=== PATIENT | male | born 1965 | race Caucasian/White ===

== ENCOUNTER 2023-05-24 09:48 | Emergency (ER) | payer OTHER ==
--- NOTE | 2023-05-24 10:52 | XR ---
3 views right shoulder. DATE: 05/24/2023. COMPARISON: None available. HISTORY: Pain in shoulder for lifting. FINDINGS: There is no fracture, subluxation or dislocation. There is mild to moderate osteoarthritis involving the glenohumeral joint space with joint space narr owing and a spur along the inferior medial aspect of the humeral head. Mild irregularity of the great er tuberosity likely relates to rotator cuff tendinopathy. Moderate spurring is seen at the acromial clavicular joint. IMPRESSION: Degenerative changes with no acute osseous abnormalities.
--- NOTE | 2023-05-24 11:38 | ED ---
General Adult HPI - General Chief complaint: Extremity Injury, Upper Stated complaint: Right shoulder pain Source: patient Mode of arrival: ambulatory Limitations: no limitations - History of Present Illness Initial comments: 57-year-old male presenting to the ED with a chief complaint of right shoulder pain. Patient notes he has remote history of right shoulder fracture. Since then, notes intermittent pain of the right shoulder however states over the past few months has been worsening in severity. States over the past few weeks he has noticed some paresthesiasgoing down his right arm. States he told his about this who became concerned and advised him to present to the ED for further evaluation. States that he has follow-up with his orthopedist scheduled on . Denies chest pain or shortness of breath. No recent injury or trauma. No other complaints. - Related Data Previous Rx's Medication Instructions Recorded Ibuprofen [Motrin] 600 mg PO Q8HR PRN #30 tab 05/24/23 methocarbamoL [Robaxin-750] 750 mg PO QID #15 tab 05/24/23 Allergies Allergy/AdvReac Type Severity Reaction Status Date / Time No Known Allergies Allergy Verified 05/24/23 10:01 Review of Systems ROS Statement: Those systems with pertinent positive or pertinent negative responses have been documented in the HPI. ROS Other: All systems not noted in ROS Statement are negative. Past Medical History Past Medical History: No Reported History History of Any Multi-Drug Resistant Organisms: None Reported Past Surgical History: Orthopedic Surgery Additional Past Surgical History / Comment(s): right shoulder dislocated, right leg Past Psychological History: Bipolar Smoking Status: Former smoker, Vaper Past Alcohol Use History: None Reported Past Drug Use History: None Reported General Exam Limitations: no limitations General appearance: alert, in no apparent distress Neck exam: Present: normal inspection Respiratory exam: Present: normal lung sounds bilaterally Cardiovascular Exam: Present: regular rate, normal rhythm GI/Abdominal exam: Present: soft Extremities exam: Present: other (Decreased active range of motion secondary to pain. Full passive range of motion. Strength and sensation equal and intact of bilateral upper extremities.) Neurological exam: Present: alert, oriented X3 Skin exam: Present: warm, dry Course Vital Signs 05/24/23 09:58 Temperature 98.8 F Pulse Rate 88 Respiratory 16 Rate Blood Pressure 145/93 O2 Sat by Pulse 100 Oximetry Medical Decision Making - Medical Decision Making Was pt. sent in by a medical professional or institution (LAZARO Sanchez, OPERATIONS LEADER, urgent care, hospital, or fpc...) When possible be specific @ -No Did you speak to anyone other than the patient for history (EMS, parent, family, police, friend...)? What history was obtained from this source @ -No Did you review nursing and triage notes (agree or disagree)? Why? @ -I reviewed and agree with nursing and triage notes Were old charts reviewed (outside hosp., previous admission, EMS record, old EKG, old radiological studies, urgent care reports/EKG's, fpc records)? Report findings @ -No old charts were reviewed Differential Diagnosis (chest pain, altered mental status, abdominal pain women, abdominal pain men, vaginal bleeding, weakness, fever, dyspnea, syncope, headache, dizziness, GI bleed, back pain, seizure, CVA, palpatations, mental health, musculoskeletal)? @ -Differential Musculoskeletal Muscular strain, contusion, ligament sprain, fracture, arthritis, septic arthritis, bursitis, cellulitis, muscle spasm, nerve compression, DVT, arterial occlusion, herpes zoster, electrolyte abnormality, tumor.... This is not meant to be in all inclusive list EKG interpreted by me (3pts min.). @ -None X-rays interpreted by me (1pt min.). @ -X-ray of the right shoulder interpreted by me showing no acute findings. CT interpreted by me (1pt min.). @ -None done U/S interpreted by me (1pt. min.). @ -None done What testing was considered but not performed or refused? (CT, X-rays, U/S, labs)? Why? @ -None What meds were considered but not given or refused? Why? @ -Patient was offered an EKG however at this time declined. Did you discuss the management of the patient with other professionals ( professionals i.e. LAZARO Sanchez, OPERATIONS LEADER, lab, RT, psych nurse, high school social studies tutor, telehealth director, teacher, community liaison officer, outpatient case manager)? Give summary @ -No Was smoking cessation discussed for >3mins.? @ -No Was critical care preformed (if so, how long)? @ -No Were there social determinants of health that impacted care today? How? (Homelessness, low income, unemployed, alcoholism, drug addiction, transportation, low edu. Level, literacy, decrease access to med. care, alf, rehab)? @ -No Was there de-escalation of care discussed even if they declined (Discuss DNR or withdrawal of care, Hospice)? DNR status @ -No What co-morbidities impacted this encounter? (DM, HTN, Smoking, COPD, CAD, Cancer, CVA, ARF, Chemo, Hep., AIDS, mental health diagnosis, sleep apnea, morbid obesity)? @ -None Was patient admitted / discharged? Hospital course, mention meds given and route, prescriptions, significant lab abnormalities, going to OR and other pertinent info. @ -Discharge 77-year-old male presenting to the ED with a chief complaint of chronic right shoulder pain recently worsening over the past few weeks. Imaging showed no acute findings however did show degenerative changes of the right shoulder. Patient reassured. Provided prescription for ibuprofen and methocarbamol. Advised follow-up with his orthopedist as scheduled. Discharged home in stable condition. Discussed return precautions with patient who verbalizes agree. Undiagnosed new problem with uncertain prognosis? @ -No Drug Therapy requiring intensive monitoring for toxicity (Heparin, Nitro, Insulin, Cardizem)? @ -No Were any procedures done? @ -No Diagnosis/symptom? @ -Right shoulder pain Acute, or Chronic, or Acute on Chronic? @ -Acute on chronic Uncomplicated (without systemic symptoms) or Complicated (systemic symptoms)? @ -Uncomplicated Side effects of treatment? @ -No Exacerbation, Progression, or Severe Exacerbation? @ -No Poses a threat to life or bodily function? How? (Chest pain, [place], [place], pneumonia, PE, COPD, DKA, ARF, appy, cholecystitis, CVA, Diverticulitis, Homicidal, Suicidal, threat to staff... and all critical care pts) @ -No Disposition Clinical Impression: Shoulder pain Disposition: HOME SELF-CARE Condition: Good Instructions (If sedation given, give patient instructions): Osteoarthritis (ED ) Additional Instructions: Please return to the Emergency Department if symptoms worsen or any other concerns. Follow up with your orthopedist. Prescriptions: Ibuprofen [Motrin] 600 mg PO Q8HR PRN #30 tab PRN Reason: Pain methocarbamoL [Robaxin-750] 750 mg PO QID #15 tab Is patient prescribed a controlled substance at d/c from ED?: No Referrals: Simeon Woodson JrDO [Primary Care Provider] - 1-2 days Time of Disposition: 11:43
[2023-05-24 12:16] VITALS: BP 139/79; PULSE 80; RESP 18; TEMP 98.6
== END 2023-05-24 12:00 | disposition home or self-care (01) ==
LOC: EC 09:48
DX: M19.011 Primary osteoarthritis, right shoulder (principal); F17.290 Nicotine dependence, other tobacco product, uncomplicated
CPT/HCPCS: 99283